=== PATIENT | male | born 1965 | race Caucasian/White ===

== ENCOUNTER 2017-04-05 10:49 | Day surgery (SDC) | payer OTHER ==
[~2017-04-05] VITALS: Ht 167.6 cm; Wt 66.6 kg
[~2017-04-05 10:49] MED LIST: ESOM40CA PO
[2017-04-05] MEDS ORDERED: LIDOCAINE 1%, 2ML ONE (11:22)
[2017-04-05] MEDS ORDERED: LACTATED RINGERS 1,000 ML IV SCH (11:26)
[2017-04-05 11:27] VITALS: BP 130/88
[2017-04-05] MEDS ORDERED: LIDOCAINE 1%, 2ML SQ PRN (11:30)
[2017-04-05] MEDS ORDERED: MIDAZOLAM 1 MG/ML, 2ML ONE (11:43)
[2017-04-05] MEDS ORDERED: FENTANYL PF 100 MCG/2ML ONE ×3 (11:43→13:43)
[2017-04-05] MEDS ORDERED: EPINEPHRINE 1 MG/ML, 1ML ONE (11:49)
[2017-04-05] MEDS ORDERED: NEOSPORIN OINT, 15GM ONE (11:49)
[2017-04-05] MEDS ORDERED: BUPIVACAINE/PF 0.5% ONE (11:49)
[2017-04-05] MEDS ORDERED: CEFAZOLIN 1,000 MG ONE (12:38)
[2017-04-05] MEDS ORDERED: ONDANSETRON 2MG/ML, 2ML ONE (12:38)
[2017-04-05] MEDS ORDERED: PROPOFOL 10 MG/ML, 20ML ONE (12:38)
[2017-04-05] MEDS ORDERED: DEXAMETHASONE 4 MG/ML, 1ML ONE (12:38)
[2017-04-05] MEDS ORDERED: HYDROcodone/APAP 7.5-325MG/15ML UDC ONE (13:43)
[2017-04-05] MEDS ORDERED: KETOROLAC 30 MG/1 ML ONE (13:43)
[2017-04-05] MEDS ORDERED: HYDROmorphone 1 MG/ML, 1ML IV PRN (14:00)
[2017-04-05] MEDS ORDERED: FENTANYL PF 100 MCG/2ML IV PRN (14:00)
[2017-04-05] MEDS ORDERED: HYDROcodone/APAP 7.5-325MG/15ML UDC PO PRN (14:00)
[2017-04-05] MEDS ORDERED: DIAZEPAM 5 MG/ML, 2ML IVPush PRN (14:00)
[2017-04-05] MEDS ORDERED: ALBUTEROL/IPRATROPIUM 2.5MG/0.5MG, 3 ML NPPB PRN (14:00)
[2017-04-05] MEDS ORDERED: PROMETHAZINE 25 MG/ML, 1ML IV PRN (14:00)
[2017-04-05] MEDS ORDERED: LABETALOL 5MG/ML, 20ML IV PRN (14:00)
[2017-04-05] MEDS ORDERED: METOPROLOL 1 MG/ML, 5ML IV PRN (14:00)
[2017-04-05] MEDS ORDERED: ONDANSETRON 2MG/ML, 2ML IVPush PRN (14:00)
[2017-04-05] MEDS ORDERED: MEPERIDINE/PF 25MG/0.5ML IVPush PRN (14:00)
[2017-04-05] MEDS ORDERED: ALBUTEROL SULFATE 2.5 MG/3 ML NPPB PRN (14:00)
[2017-04-05] MEDS ORDERED: OXYcodone 5 MG/5 ML ORAL.SOL UDC PO PRN (14:00)
[2017-04-05] MEDS ORDERED: EPHEDRINE 50 MG/ML, 1ML IVPush PRN (14:00)
[2017-04-05] MEDS ORDERED: KETOROLAC 30 MG/1 ML IV PRN (14:00)
[2017-04-05] MEDS ORDERED: ACETAMINOPHEN 325 MG TABLET PO PRN (14:00)
[2017-04-05] MEDS ORDERED: hydrALAzine 20 MG/ML, 1ML IV PRN (14:00)
== END 2017-04-05 17:15 ==
LOC: OUT 10:49
PROVIDERS: ATTEND Orthopaedic Surgery
DX: S82.51XA Displaced fracture of medial malleolus of right tibia, initial encounter for closed fracture (principal); S92.341A Displaced fracture of fourth metatarsal bone, right foot, initial encounter for closed fracture; S92.331A Displaced fracture of third metatarsal bone, right foot, initial encounter for closed fracture; S92.321A Displaced fracture of second metatarsal bone, right foot, initial encounter for closed fracture; F17.210 Nicotine dependence, cigarettes, uncomplicated; K21.9 Gastro-esophageal reflux disease without esophagitis; F10.10 Alcohol abuse, uncomplicated; F19.90 Other psychoactive substance use, unspecified, uncomplicated; V03.90XA Pedestrian on foot injured in collision with car, pick-up truck or van, unspecified whether traffic or nontraffic accident, initial encounter; Y93.89 Activity, other specified; Y92.89 Other specified places as the place of occurrence of the external cause; Y99.8 Other external cause status
CPT/HCPCS: 27766; 28476; 73600; 76000; C1713; J0171; J0690; J1100; J1885; J2250; J2405; J2704; J3010; J3490; J7120

== ENCOUNTER 2017-06-26 12:25 | Emergency (ER) | payer MEDICAID ==
[~2017-06-26] VITALS: Ht 167.6 cm; Wt 60.0 kg
[2017-06-26 12:27] VITALS: BP 126/82
[2017-06-26] MEDS ORDERED: FLUORESCEIN OPHTHALMIC 1 MG STRIP ONE (12:49)
== END 2017-06-26 13:19 | disposition home or self-care (01) ==
LOC: ED 13:00
DX: H00.034 Abscess of left upper eyelid (principal)
CPT/HCPCS: 99283

== ENCOUNTER 2017-07-19 13:47 | Emergency (ER) | payer MEDICAID ==
[~2017-07-19] VITALS: Ht 167.6 cm; Wt 65.5 kg
[2017-07-19 13:56] VITALS: BP 109/76
[2017-07-19] MEDS ORDERED: LIDOCAINE-MPF 1%, 5ML INFIL ONE (14:30)
== END 2017-07-19 15:50 | disposition home or self-care (01) ==
LOC: ED 15:40
DX: S01.511A Laceration without foreign body of lip, initial encounter (principal); K21.9 Gastro-esophageal reflux disease without esophagitis; I10 Essential (primary) hypertension; Y04.0XXA Assault by unarmed brawl or fight, initial encounter; Y93.89 Activity, other specified; Y99.8 Other external cause status; Y92.488 Other paved roadways as the place of occurrence of the external cause
CPT/HCPCS: 12052

== ENCOUNTER 2017-07-27 11:27 | Emergency (ER) | payer MEDICAID ==
[~2017-07-27] VITALS: Ht 167.6 cm; Wt 67.0 kg
[2017-07-27 11:35] VITALS: BP 120/84
== END 2017-07-27 14:04 | disposition home or self-care (01) ==
LOC: ED 14:03
DX: S01.511D Laceration without foreign body of lip, subsequent encounter (principal); I10 Essential (primary) hypertension; K21.9 Gastro-esophageal reflux disease without esophagitis
CPT/HCPCS: 99281

== ENCOUNTER 2017-09-14 14:56 | Emergency (ER) | payer MEDICAID ==
[~2017-09-14] VITALS: Ht 167.6 cm; Wt 62.0 kg
[~2017-09-14 14:56] MED LIST changes: +MULT-484 PO; +OXYC1TAB7 PO
[2017-09-14 17:07] VITALS: BP 122/70
== END 2017-09-14 17:38 | disposition home or self-care (01) ==
LOC: ED 16:33
DX: R07.89 Other chest pain (principal); K59.00 Constipation, unspecified; Y04.0XXA Assault by unarmed brawl or fight, initial encounter; Y93.89 Activity, other specified; Y99.8 Other external cause status; Y92.410 Unspecified street and highway as the place of occurrence of the external cause
CPT/HCPCS: 71046; 99284

== ENCOUNTER 2019-07-13 06:00 | Observation (INO) | payer MEDICAID ==
[~2019-07-13] VITALS: Ht 167.6 cm; Wt 60.5 kg
--- NOTE | 2019-07-13 06:57 | NUR ---
REPORT RECIEVED FROM CHRIS AVENDAÑO, ASSUMED CARE OF PT, PT DENG SITTING ON [facility] GUNDERSON NOTED.
[2019-07-13 07:20] LABS: ALANINE AMINOTRANSFERASE 26 U/L (12-78); ALBUMIN 3.5 g/dL (3.4-5.0); ANION GAP 6 mmol/L (5-15); CALCIUM 8.5 mg/dL (8.5-10.1); CHLORIDE 109 mmol/L (98-107); CREATININE 0.75 mg/dL (0.7-1.3)
[2019-07-13 07:24] LABS: ALKALINE PHOSPHATASE 105 U/L (45-117); BILIRUBIN,TOTAL 0.7 mg/dL (0.2-1.0); TOTAL PROTEIN 6.5 g/dL (6.4-8.2); TROPONIN I < 0.015 ng/mL (0.000-0.045)
[2019-07-13] MEDS ORDERED: ASPIRIN 81 MG TABLET CHEW ONE (07:40)
[2019-07-13 07:43] LABS: BASOPHILS # (AUTO) 0.04 x10^3/uL (0-0.1); BASOPHILS % (AUTO) 1 % (0-1); EOSINOPHILS # (AUTO) 0.12 x10^3/uL (0-0.4); EOSINOPHILS % (AUTO) 1 % (1-7); LYMPHOCYTES # (AUTO) 1.69 x10^3/uL (1-3.4); LYMPHOCYTES % (AUTO) 20 % (22-44); MD SCAN; MEAN CORPUSCULAR HEMOGLOBIN 31.8 pg (27.5-34.5); MEAN CORPUSCULAR HGB CONC 33.9 g/dL (33.2-36.2); MEAN CORPUSCULAR VOLUME 93.9 fL (81-97); MEAN PLATELET VOLUME 8.4 fL (7.4-10.4); MONOCYTES # (AUTO) 0.63 x10^3/uL (0.2-0.8); MONOCYTES % (AUTO) 8 % (2-9); NEUTROPHILS # (AUTO) 6.01 x10^3/uL (1.8-6.8); NEUTROPHILS % (AUTO) 71 % (42-75); PLATELET COUNT 285 x10^3/uL (130-400); RED BLOOD COUNT 4.71 x10^6/uL (4.38-5.82); RED CELL DISTRIBUTION WIDTH 14.4 % (9.4-14.8)
--- NOTE | 2019-07-13 07:46 | NUR ---
PT MEDICATED PER MAR, PLACED ON ALL MONITORING EQUIP. PT DENIES CP, SOB. STATES HE HAS NO CARDIAC HX
[2019-07-13] MEDS ORDERED: ASPIRIN 81 MG TABLET CHEW PO ONE (08:00)
[2019-07-13] MEDS ORDERED: SODIUM CHLORIDE FLUSH 10ML SYR IVF ONE (08:30)
--- NOTE | 2019-07-13 08:50 | NUR ---
PIV INITIATED, PT UPDATED ON POC. PT TO BE ADMITTED. VSS, NAD NOTED AT THIS TIME
[2019-07-13] MEDS ORDERED: SODIUM CHLORIDE FLUSH 10ML SYR IVF PRN (09:30)
[2019-07-13] MEDS ORDERED: LORazepam 2 MG/ML, 1ML IV PRN ×3 (10:00)
[2019-07-13] MEDS ORDERED: LORazepam 0.5MG TABLET PO PRN (10:00)
[2019-07-13] MEDS ORDERED: ONDANSETRON ODT 4 MG PO PRN (10:00)
[2019-07-13] MEDS ORDERED: MECLIZINE HCL 25 MG TABLET PO PRN (10:00)
[2019-07-13] MEDS ORDERED: LORazepam 1MG TABLET PO PRN ×2 (10:00)
[2019-07-13] MEDS ORDERED: ACETAMINOPHEN 325 MG TABLET PO PRN (10:00)
[2019-07-13] MEDS ORDERED: ONDANSETRON 2MG/ML, 2ML IVPush PRN (10:00)
--- NOTE | 2019-07-13 10:02 | NUR ---
ADMITTING ME IN TO [facility]
[2019-07-13 10:49] VITALS: BP 126/83
[2019-07-13 11:30] VITALS: BP 119/80
[2019-07-13 11:35] VITALS: BP 117/74
[2019-07-13 11:40] VITALS: BP 111/77
[2019-07-13] MEDS: NICOTINE 21 MG/24 HR PATCH.TD24 TD SCH (12:09)
[2019-07-13] MEDS: SODIUM CHLORIDE 0.9% 1,000 ML IV SCH (12:10)
[2019-07-13] MEDS: ENOXAPARIN 40 MG/0.4 ML SQ SCH (12:10)
[2019-07-13 13:30] VITALS: BP 105/59
[2019-07-13 13:53] LABS: AMPHETAMINE SCREEN, URINE Negative (Negative); BARBITURATE SCREEN, URINE Negative (Negative); BENZODIAZEPINE SCREEN, URINE Negative (Negative); CANNABINOID SCREEN, URINE Negative (Negative); COCAINE SCREEN, URINE Negative (Negative); METHADONE SCREEN, URINE Negative (Negative); OPIATE SCREEN, URINE Negative (Negative)
[2019-07-13 16:09] LABS: TROPONIN I < 0.015 ng/mL (0.000-0.045)
[2019-07-13 20:39] VITALS: BP 110/77
[2019-07-14 01:12] VITALS: BP 102/69
[2019-07-14] MEDS: SODIUM CHLORIDE 0.9% 1,000 ML IV SCH (02:23)
[2019-07-14 08:20] VITALS: BP 110/64
[2019-07-14] MEDS ORDERED: PANTOPROZOLE 40MG TABLET PO SCH (09:00)
[2019-07-14] MEDS ORDERED: MULTIVITAMINS/MINERALS TABLET PO SCH (09:00)
[2019-07-14] MEDS ORDERED: LACTOBACILLUS CHEW TABLET PO SCH (09:30)
[2019-07-14] MEDS: NICOTINE 21 MG/24 HR PATCH.TD24 TD SCH (10:00)
[2019-07-14] MEDS: ENOXAPARIN 40 MG/0.4 ML SQ SCH (10:20)
[2019-07-14] MEDS ORDERED: NICO-487 TD (11:21)
[2019-07-14] MEDS ORDERED: MECL-101 PO (11:21)
[2019-07-14] MEDS ORDERED: ACID1TAB7 PO (11:21)
== END 2019-07-14 13:40 | disposition home or self-care (01) ==
LOC: ED 07:01 → EDIP 09:20 → INTOOBSV 09:20 → 5SO 10:46
PROVIDERS: ADMIT Internal Medicine; ATTEND Internal Medicine
DX: H81.09 Meniere's disease, unspecified ear (principal); J44.9 Chronic obstructive pulmonary disease, unspecified; G47.00 Insomnia, unspecified; F10.220 Alcohol dependence with intoxication, uncomplicated; R79.89 Other specified abnormal findings of blood chemistry; R42 Dizziness and giddiness; F17.210 Nicotine dependence, cigarettes, uncomplicated; K21.9 Gastro-esophageal reflux disease without esophagitis; Z79.899 Other long term (current) drug therapy
CPT/HCPCS: 36415; 70450; 80053; 80307; 84484; 85025; 93005; 96360; 96361; 96372; 99285; G0378; J1650; J7030

== ENCOUNTER 2019-07-14 14:02 | Emergency (ER) | payer MEDICAID ==
[~2019-07-14] VITALS: Ht 167.6 cm; Wt 62.0 kg
[~2019-07-14 14:02] MED LIST changes: +ACID1TAB7 PO; +MECL-101 PO; +NICO-487 TD
--- NOTE | 2019-07-14 16:13 | NUR ---
FIRST CONTACT WITH PT. PT C/O DIZZY TROUBLE SLEEPING PAIN IN THE EARS WITH RINGING. RESOLVED AT THE MOMENT. PT'S AOX4. RESPS EVEN AND UNLABORED. BP/SPO2 MONITORS IN PLACE. CALL LIGHT WITHIN REACH.
--- NOTE | 2019-07-14 16:13 | NUR ---
EDMD AT BEDSIDE TO EVALUATE AT THIS TIME.
[2019-07-14] MEDS ORDERED: MECLIZINE CHEWABLE 25 MG TAB ONE (16:19)
[2019-07-14] MEDS ORDERED: DEXAMETHASONE 4 MG/ML, 1ML ONE (16:19)
--- NOTE | 2019-07-14 16:25 | NUR ---
PT MEDICATED PER EMAR. PT TOLERATED WELL.
[2019-07-14] MEDS ORDERED: MECLIZINE CHEWABLE 25 MG TAB PO PRN (16:30)
[2019-07-14] MEDS ORDERED: DEXAMETHASONE 4 MG/ML, 1ML PO ONE (16:30)
--- NOTE | 2019-07-14 16:47 | NUR ---
PT AMB TO BR AND BACK TO ROOM WITH STEADY GAIT.
--- NOTE | 2019-07-14 17:30 | NUR ---
EDMD AT BEDSIDE TO EXPLAIN ALL RESULTS AT THIS TIME.
--- NOTE | 2019-07-14 17:35 | NUR ---
PT STATES"I DON'T FEEL GOOD. I STILL HAVE DZY. I WILL COME BACK IF YOU DC ME." EDMD/MRI CT TECH NOTIFIED. EDMD STATES"HE IS FINE AND HE IS TRYING TO FIND A PLACE TO STAY. PLEASE GIVE HIM SOME FOOD AND DC."
--- NOTE | 2019-07-14 17:40 | NUR ---
APPLE UICE AND SNACKS PROVIDED BEFORE DC.
[2019-07-14 17:46] VITALS: BP 121/73
--- NOTE | 2019-07-14 17:48 | NUR ---
Patient given discharge instructions and they have confirmed that they understand the instructions.
== END 2019-07-14 17:48 | disposition home or self-care (01) ==
LOC: ED 17:26
DX: H93.13 Tinnitus, bilateral (principal); R42 Dizziness and giddiness; I10 Essential (primary) hypertension; K21.9 Gastro-esophageal reflux disease without esophagitis
CPT/HCPCS: 99283; J1100

== ENCOUNTER 2019-07-16 18:28 | Emergency (ER) | payer MEDICAID ==
[~2019-07-16] VITALS: Ht 167.6 cm; Wt 61.5 kg
--- NOTE | 2019-07-16 18:38 | NUR ---
NA X 1
[2019-07-16 19:46] LABS: ALANINE AMINOTRANSFERASE 26 U/L (12-78); ALBUMIN 4.2 g/dL (3.4-5.0); ANION GAP 6 mmol/L (5-15); CALCIUM 8.7 mg/dL (8.5-10.1); CHLORIDE 104 mmol/L (98-107)
[2019-07-16 19:51] LABS: ALKALINE PHOSPHATASE 97 U/L (45-117); BILIRUBIN,TOTAL 0.8 mg/dL (0.2-1.0); TOTAL PROTEIN 7.3 g/dL (6.4-8.2); TROPONIN I < 0.015 ng/mL (0.000-0.045)
[2019-07-16 19:54] LABS: MEAN CORPUSCULAR HEMOGLOBIN 31.9 pg (27.5-34.5); MEAN CORPUSCULAR VOLUME 93.6 fL (81-97); MEAN PLATELET VOLUME 8.3 fL (7.4-10.4); PLATELET COUNT 322 x10^3/uL (130-400); RED BLOOD COUNT 4.69 x10^6/uL (4.38-5.82); RED CELL DISTRIBUTION WIDTH 14.5 % (9.4-14.8)
[2019-07-16 20:44] LABS: MD YES
[2019-07-16 20:46] LABS: <RBC MORPHOLOGY> NORMAL; BAND#(MANUAL) 0.16 x10^3/uL; BANDS%(MANUAL) 1 % (0-7); BASOS#(MANUAL) 0.16 x10^3/uL (0-0.1); BASOS% (MANUAL) 1 % (0-1); EOS#(MANUAL) 0.16 x10^3/uL (0.0-0.4); EOS% (MANUAL) 1 % (1-7); LYMPHS% (MANUAL) 20 % (22-44); MONOS#(MANUAL) 0.93 x10^3/uL (0.3-2.7); MONOS% (MANUAL) 6 % (2-9); SEG#(MANUAL) 11.01 x10^3/uL (1.8-6.8); SEGS% (MANUAL) 71 % (42-75)
[2019-07-16 20:47] LABS: <PLATELET ESTIMATE> ADEQUATE; <PLT MORPHOLOGY> NORMAL PLT MORPH
--- NOTE | 2019-07-16 23:02 | NUR ---
pt to room from lobby
[2019-07-16] MEDS ORDERED: MECLIZINE CHEWABLE 25 MG TAB ONE (23:23)
[2019-07-16] MEDS ORDERED: THIAMINE 100MG TABLET ONE (23:23)
--- NOTE | 2019-07-16 23:26 | NUR ---
MEDICATED PER JUL PT IN [facility] PA AT BS
[2019-07-16] MEDS ORDERED: MECLIZINE CHEWABLE 25 MG TAB PO ONE (23:30)
[2019-07-16] MEDS ORDERED: THIAMINE 100MG TABLET PO ONE (23:30)
[2019-07-16 23:58] LABS: AMPHETAMINE SCREEN, URINE Positive (Negative); BARBITURATE SCREEN, URINE Negative (Negative); BENZODIAZEPINE SCREEN, URINE Negative (Negative); CANNABINOID SCREEN, URINE Negative (Negative); COCAINE SCREEN, URINE Negative (Negative); METHADONE SCREEN, URINE Negative (Negative); OPIATE SCREEN, URINE Negative (Negative)
[2019-07-17 00:47] VITALS: BP 108/69
--- NOTE | 2019-07-17 00:48 | NUR ---
Received report, assumed patient care. Laboratory results and orders complete from PIT orders. Patient still reports dizzyness, but vitals are stable (see vital signs flowsheet.) awaiting reassessment by provider.
== END 2019-07-17 01:43 | disposition home or self-care (01) ==
LOC: ED 07-17 01:10
DX: R42 Dizziness and giddiness (principal); H81.09 Meniere's disease, unspecified ear; F15.10 Other stimulant abuse, uncomplicated; H93.13 Tinnitus, bilateral; F17.210 Nicotine dependence, cigarettes, uncomplicated; K21.9 Gastro-esophageal reflux disease without esophagitis; I10 Essential (primary) hypertension
CPT/HCPCS: 36415; 80053; 80307; 82607; 83735; 84484; 85025; 86592; 93005; 99284

== ENCOUNTER 2019-07-17 16:57 | Emergency (ER) | payer MEDICAID ==
[~2019-07-17] VITALS: Ht 167.6 cm; Wt 61.4 kg
[2019-07-17 18:06] LABS: BASOPHILS # (AUTO) 0.03 x10^3/uL (0-0.1); BASOPHILS % (AUTO) 0 % (0-1); EOSINOPHILS # (AUTO) 0.25 x10^3/uL (0-0.4); EOSINOPHILS % (AUTO) 3 % (1-7); LYMPHOCYTES # (AUTO) 2.19 x10^3/uL (1-3.4); LYMPHOCYTES % (AUTO) 24 % (22-44); MD NO; MEAN CORPUSCULAR HEMOGLOBIN 31.8 pg (27.5-34.5); MEAN CORPUSCULAR HGB CONC 33.8 g/dL (33.2-36.2); MEAN CORPUSCULAR VOLUME 94.1 fL (81-97); MEAN PLATELET VOLUME 8.6 fL (7.4-10.4); MONOCYTES # (AUTO) 0.58 x10^3/uL (0.2-0.8); MONOCYTES % (AUTO) 6 % (2-9); NEUTROPHILS # (AUTO) 6.09 x10^3/uL (1.8-6.8); NEUTROPHILS % (AUTO) 67 % (42-75); PLATELET COUNT 317 x10^3/uL (130-400); RED BLOOD COUNT 4.62 x10^6/uL (4.38-5.82); RED CELL DISTRIBUTION WIDTH 14.5 % (9.4-14.8)
[2019-07-17 18:13] LABS: ALBUMIN 3.5 g/dL (3.4-5.0); ANION GAP 9 mmol/L (5-15); CALCIUM 8.6 mg/dL (8.5-10.1); CHLORIDE 108 mmol/L (98-107); CREATININE 1.02 mg/dL (0.7-1.3)
--- NOTE | 2019-07-17 18:58 | NUR ---
PT AMBULATORY TO RESTROOM WITH STEADY GAIT AND NO STAFF ASSISTANCE.
--- NOTE | 2019-07-17 19:02 | NUR ---
PT HERE WITH C/O RINGING IN EARS, DIZZINESS, "FEELS LIKE I AM GOING TO PASS OUT." PT SEEN HERE FOR THIS FOR MULTIPLE TIMES. PT AAO X 4, NAD, ROOM AIR, CALL LIGHT WITHIN REACH. SIDERAIL X [address]. PT DOES STATE METH USE X 3 DAYS AGO. PT ALSO PREVIOUSLY ADMITTED FOR THIS BEFORE AND PT HAS BEEN GIVEN MULTIPLE INSTRUCTIONS TO CONTACT ENT MD AND FOLLOW UP OUTPATIENT.
[2019-07-17 19:07] VITALS: BP 104/69
[2019-07-17] MEDS ORDERED: THIAMINE 100MG TABLET PO ONE (19:30)
[2019-07-17] MEDS ORDERED: MECLIZINE CHEWABLE 25 MG TAB PO ONE (19:30)
[2019-07-17] MEDS ORDERED: MECLIZINE CHEWABLE 25 MG TAB ONE (19:37)
[2019-07-17] MEDS ORDERED: THIAMINE 100MG TABLET ONE (19:37)
--- NOTE | 2019-07-17 19:41 | NUR ---
PT MEDICATED PER ORDERS.
--- NOTE | 2019-07-17 19:49 | NUR ---
Patient/Caregiver given discharge instructions and they have confirmed that they understand the instructions. Patient ambulatory with steady gait.
== END 2019-07-17 20:05 | disposition home or self-care (01) ==
LOC: ED 19:30
DX: H81.03 Meniere's disease, bilateral (principal); R00.0 Tachycardia, unspecified; F17.210 Nicotine dependence, cigarettes, uncomplicated
CPT/HCPCS: 36415; 80048; 82040; 85025; 93005; 99284

== ENCOUNTER 2019-08-18 10:34 | Emergency (ER) | payer MEDICAID ==
[~2019-08-18] VITALS: Ht 167.6 cm; Wt 59.0 kg
[2019-08-18] MEDS ORDERED: MECLIZINE CHEWABLE 25 MG TAB ONE (11:30)
[2019-08-18] MEDS ORDERED: MECLIZINE CHEWABLE 25 MG TAB PO ONE (11:30)
[2019-08-18 11:44] VITALS: BP 115/75
== END 2019-08-18 11:54 | disposition home or self-care (01) ==
LOC: ED 10:54
DX: R42 Dizziness and giddiness (principal); F15.10 Other stimulant abuse, uncomplicated; I10 Essential (primary) hypertension; K21.9 Gastro-esophageal reflux disease without esophagitis; F17.210 Nicotine dependence, cigarettes, uncomplicated; Z72.9 Problem related to lifestyle, unspecified
CPT/HCPCS: 93005; 99283; 99406

== ENCOUNTER 2019-08-18 19:01 | Emergency (ER) | payer MEDICAID ==
[~2019-08-18] VITALS: Ht 167.6 cm; Wt 61.0 kg
[2019-08-18 19:07] VITALS: BP 112/75
== END 2019-08-18 20:35 | disposition home or self-care (01) ==
LOC: ED 20:08
DX: R05 Cough (principal); J02.9 Acute pharyngitis, unspecified; R09.89 Other specified symptoms and signs involving the circulatory and respiratory systems; F17.210 Nicotine dependence, cigarettes, uncomplicated; K21.9 Gastro-esophageal reflux disease without esophagitis
CPT/HCPCS: 71045; 99283; 99406

== ENCOUNTER 2019-08-27 07:54 | Emergency (ER) | payer MEDICAID ==
[~2019-08-27] VITALS: Ht 167.6 cm; Wt 59.9 kg
[2019-08-27 08:00] VITALS: BP 128/87
== END 2019-08-27 09:24 | disposition home or self-care (01) ==
LOC: ED 08:22
DX: B34.9 Viral infection, unspecified (principal); T69.9XXA Effect of reduced temperature, unspecified, initial encounter; J44.9 Chronic obstructive pulmonary disease, unspecified; K21.9 Gastro-esophageal reflux disease without esophagitis; I10 Essential (primary) hypertension; F17.210 Nicotine dependence, cigarettes, uncomplicated
CPT/HCPCS: 99282

== ENCOUNTER 2020-01-21 06:41 | Emergency (ER) | payer MEDICAID ==
[~2020-01-21] VITALS: Ht 167.6 cm; Wt 67.0 kg
[2020-01-21] MEDS ORDERED: SODIUM CHLORIDE FLUSH 10ML SYR IVF ONE (07:00)
[2020-01-21] MEDS ORDERED: ASPIRIN 81 MG TABLET CHEW PO ONE (07:00)
--- NOTE | 2020-01-21 07:00 | NUR ---
BIB [facility] C/O "HEART FLUTTERS" THAT STARTED AT 0615 WITH ACCOMPANIED FATIGUE. PT IS ASYMPTOMATIC UPON ARRIVAL TO THE ER. NO PMHX, NO MEDS, NKDA. DID REPORT "SMOKING A LITTLE METH" YESTERDAY. DRINKS 1/2 PINT OF ETOH DAILY, SMOKES A PACK A DAY AND OCCASIONALLY USES METH. CAOX4, NO DISTRESS NOTED. ALL MONITORING EQUIPMENT APPLIED, NSR ON THE MONITOR, NO ECTOPY NOTED. NO ST CHANGES PRESENT. ALL VITALS STABLE. PT UPDATED ON POC. REPORT TO PRIMARY RNISELA
[2020-01-21 07:25] LABS: BASOPHILS # (AUTO) 0.07 x10^3/uL (0-0.1); BASOPHILS % (AUTO) 1 % (0-1); EOSINOPHILS # (AUTO) 0.14 x10^3/uL (0-0.4); EOSINOPHILS % (AUTO) 1 % (1-7); LYMPHOCYTES # (AUTO) 1.96 x10^3/uL (1-3.4); LYMPHOCYTES % (AUTO) 19 % (22-44); MD NO; MEAN CORPUSCULAR HEMOGLOBIN 30.4 pg (27.5-34.5); MEAN CORPUSCULAR HGB CONC 33.1 g/dL (33.2-36.2); MEAN CORPUSCULAR VOLUME 91.9 fL (81-97); MEAN PLATELET VOLUME 8.6 fL (7.4-10.4); MONOCYTES # (AUTO) 0.69 x10^3/uL (0.2-0.8); MONOCYTES % (AUTO) 7 % (2-9); NEUTROPHILS % (AUTO) 72 % (42-75); PLATELET COUNT 305 x10^3/uL (130-400); RED BLOOD COUNT 4.96 x10^6/uL (4.38-5.82); RED CELL DISTRIBUTION WIDTH 15.1 % (9.4-14.8)
[2020-01-21 07:29] LABS: ALBUMIN 3.9 g/dL (3.4-5.0); ANION GAP 5 mmol/L (5-15); CALCIUM 8.6 mg/dL (8.5-10.1); CHLORIDE 107 mmol/L (98-107)
[2020-01-21 07:34] LABS: CREATININE 0.84 mg/dL (0.7-1.3); TROPONIN I < 0.015 ng/mL (0.000-0.045)
[2020-01-21 07:48] VITALS: BP 118/78
== END 2020-01-21 08:00 | disposition home or self-care (01) ==
LOC: ED 06:49
DX: R07.89 Other chest pain (principal); R00.2 Palpitations; I44.7 Left bundle-branch block, unspecified; I10 Essential (primary) hypertension; F17.290 Nicotine dependence, other tobacco product, uncomplicated; Z59.0 Homelessness
CPT/HCPCS: 36415; 71045; 80048; 82040; 83880; 84484; 85025; 93005; 99285

== ENCOUNTER 2020-01-23 20:25 | Emergency (ER) | payer MEDICAID ==
[~2020-01-23] VITALS: Ht 167.6 cm; Wt 67.9 kg
[2020-01-23] MEDS ORDERED: FLUORESCEIN OPHTHALMIC 1 MG STRIP ONE (21:05)
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
[2020-01-23 21:11] VITALS: BP 119/80
--- NOTE | 2020-01-23 21:11 | NUR ---
EKG AT BS
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
--- NOTE | 2020-01-23 21:48 | NUR ---
PT REPORT TO JAROCHO LYNCH. PT CARE TRANSFERRED.
--- NOTE | 2020-01-23 21:55 | NUR ---
Report received from JAROCHO Salcido. This RN to assume care.
== END 2020-01-23 22:28 | disposition left against medical advice (07) ==
LOC: ED 21:28
DX: F15.151 Other stimulant abuse with stimulant-induced psychotic disorder with hallucinations (principal); R00.0 Tachycardia, unspecified; K21.9 Gastro-esophageal reflux disease without esophagitis; Y90.9 Presence of alcohol in blood, level not specified
CPT/HCPCS: 93005; 99283

== ENCOUNTER 2020-01-25 14:10 | Emergency (ER) | payer MEDICAID ==
[~2020-01-25] VITALS: Ht 160 cm; Wt 60.0 kg
--- NOTE | 2020-01-25 14:44 | NUR ---
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
--- NOTE | 2020-01-25 14:50 | NUR ---
BIB [facility]-pt c/o intermittent palpitations starting yesterday. Pt reports seen here for same yesterday and palpitations persist. Pt speaking in full sentences, resp even and unlabored, NADN, denies pain. Pt placed in gown, positioned for comfort in bed. Continuous heart, oxygen and BP Monitors applied, all safety measures observed.
--- NOTE | 2020-01-25 15:21 | NUR ---
Pt reports "I feel my heart fluttering." Pt resting in bed watching TV. No changes on continuous laboratory monitor, VSS. POC discussed with pt. Pt denies other needs.
[2020-01-25 15:23] VITALS: BP 124/72
--- NOTE | 2020-01-25 15:49 | NUR ---
Dr. Martin at bedside to evaluate pt. Pt requests that PIV be removed because he wants to leave. Pt reports "I'm not getting any care here!" Pt advised that ERP is here to evaluate pt. Pt maintains that he would like to leave. Pt removed all monitors. PIV dc'd with tip intact, gauze and tape dressing applied. Pt A&Ox4. Pt able to dress self fully and ambulate out of unit with steady gait.
== END 2020-01-25 15:52 | disposition left against medical advice (07) ==
LOC: ED 15:40
DX: R00.2 Palpitations (principal); I44.7 Left bundle-branch block, unspecified; Z53.21 Procedure and treatment not carried out due to patient leaving prior to being seen by health care provider
CPT/HCPCS: 93005

== ENCOUNTER 2020-02-03 01:09 | Observation (INO) | payer MEDICAID ==
[~2020-02-03] VITALS: Ht 167.6 cm; Wt 60.1 kg
--- NOTE | 2020-02-03 01:23 | NUR ---
PT BIB EMS. PT STATES SOB AND CHEST DISCOMFORT THAT HAPPENS THROUGHOUT THE DAY BUT GOT WORSE TONIGHT WHEN HE WAS TRYING TO SLEEP. PT GIVEN 324 MG ORAL ASPRIN, AND IV PLACED BY EMS. PT WAS HERE THE PAST COUPLE DAYS FOR SAME ISSUE. PT PLACED ON ALL MONITORS, PT RESTING COMFORTABLY IN GURNEY, SKIN IS PINK, DRY AND INTACT. AWAITING ORDERS FROM ERP
[2020-02-03] MEDS ORDERED: ASPIRIN 81 MG TABLET CHEW PO ONE (01:30)
[2020-02-03 02:21] LABS: BASOPHILS # (AUTO) 0.04 x10^3/uL (0-0.1); BASOPHILS % (AUTO) 1 % (0-1); EOSINOPHILS # (AUTO) 0.32 x10^3/uL (0-0.4); EOSINOPHILS % (AUTO) 5 % (1-7); LYMPHOCYTES # (AUTO) 2.07 x10^3/uL (1-3.4); LYMPHOCYTES % (AUTO) 30 % (22-44); MD NO; MEAN CORPUSCULAR HEMOGLOBIN 30.6 pg (27.5-34.5); MEAN CORPUSCULAR HGB CONC 32.9 g/dL (33.2-36.2); MEAN PLATELET VOLUME 7.8 fL (7.4-10.4); MONOCYTES # (AUTO) 0.59 x10^3/uL (0.2-0.8); MONOCYTES % (AUTO) 8 % (2-9); NEUTROPHILS # (AUTO) 3.99 x10^3/uL (1.8-6.8); NEUTROPHILS % (AUTO) 57 % (42-75); PLATELET COUNT 316 x10^3/uL (130-400); RED BLOOD COUNT 4.28 x10^6/uL (4.38-5.82); RED CELL DISTRIBUTION WIDTH 15.4 % (9.4-14.8)
[2020-02-03 02:26] LABS: ALANINE AMINOTRANSFERASE 21 U/L (12-78); ALBUMIN 3.1 g/dL (3.4-5.0); ANION GAP 7 mmol/L (5-15); CALCIUM 8.3 mg/dL (8.5-10.1); CHLORIDE 110 mmol/L (98-107)
[2020-02-03 02:30] LABS: ALKALINE PHOSPHATASE 88 U/L (45-117); BILIRUBIN,TOTAL 0.4 mg/dL (0.2-1.0); TOTAL PROTEIN 5.9 g/dL (6.4-8.2); TROPONIN I < 0.015 ng/mL (0.000-0.045)
--- NOTE | 2020-02-03 02:32 | NUR ---
PT SLEEPING IN BED, NO S/S OF DISTRESS, SAFETY MEASURES IN PLACE
[2020-02-03] MEDS ORDERED: SODIUM CHLORIDE 0.9% 1,000 ML IV SCH (03:24)
[2020-02-03] MEDS ORDERED: NITROGLYCERIN SINGLE TAB 0.4 MG SL PRN (03:30)
[2020-02-03] MEDS ORDERED: NICOTINE 14MG/24 HR PATCH.TD24 TD ONE (03:30)
[2020-02-03] MEDS ORDERED: morphine SULFATE 10 MG/ML, 1ML IV PRN ×2 (03:30→08:30)
[2020-02-03 03:52] LABS: CHOLESTEROL, TOTAL 125 mg/dL (140-239); TRIGLYCERIDES 91 mg/dL (50-200); VLDL CHOLESTEROL 18 mg/dL (0-25)
[2020-02-03 03:56] LABS: CHOL/HDL RATIO 2.6; HDL CHOL % 39 % (26-37); HDL CHOLESTEROL (DIRECT) 49 mg/dL (40-60); LDL CHOLESTEROL,CALCULATED 58 mg/dL (54-169); LDL/HDL RATIO 1.2 (0.5-3.0); TROPONIN I < 0.015 ng/mL (0.000-0.045)
[2020-02-03] MEDS ORDERED: POTASSIUM CHLORIDE 20 MEQ TAB.ER.PRT PO ONE (04:00)
[2020-02-03] MEDS ORDERED: POTASSIUM CHLORIDE 20 MEQ TAB.ER.PRT ONE (04:26)
--- NOTE | 2020-02-03 04:50 | NUR ---
REPORT GIVEN TO JAROCHO MARTINEZ.
[2020-02-03 05:06] VITALS: BP 113/69
[2020-02-03 05:23] LABS: AMPHETAMINE SCREEN, URINE Positive (Negative); BARBITURATE SCREEN, URINE Negative (Negative); BENZODIAZEPINE SCREEN, URINE Negative (Negative); CANNABINOID SCREEN, URINE Negative (Negative); COCAINE SCREEN, URINE Negative (Negative); METHADONE SCREEN, URINE Negative (Negative); OPIATE SCREEN, URINE Negative (Negative)
[2020-02-03 06:19] LABS: TROPONIN I < 0.015 ng/mL (0.000-0.045)
[2020-02-03 07:25] VITALS: BP 112/67
[2020-02-03] MEDS ORDERED: SODIUM CHLORIDE FLUSH 10ML SYR IVF SCH (09:00)
[2020-02-03] MEDS ORDERED: ACET325C6 PEG (10:58)
[2020-02-04] MEDS ORDERED: ASPIRIN 325 MG TABLET EC PO SCH (06:00)
== END 2020-02-03 12:10 | disposition home or self-care (01) ==
LOC: ED 02:55 → EDIP 03:33 → 5SO 05:00 → DCLOUNGE 12:06
PROVIDERS: ADMIT Family Medicine; ATTEND Internal Medicine
DX: R07.89 Other chest pain (principal); E87.6 Hypokalemia; I10 Essential (primary) hypertension; R06.00 Dyspnea, unspecified; K21.9 Gastro-esophageal reflux disease without esophagitis; R94.31 Abnormal electrocardiogram [ECG] [EKG]; H81.09 Meniere's disease, unspecified ear; F10.10 Alcohol abuse, uncomplicated; F15.10 Other stimulant abuse, uncomplicated; F17.210 Nicotine dependence, cigarettes, uncomplicated; Z79.899 Other long term (current) drug therapy
CPT/HCPCS: 36415; 71045; 80053; 80061; 80307; 83735; 84484; 85025; 93005; 93306; 96360; 96361; 99285; G0378; J7030

== ENCOUNTER 2020-02-07 19:20 | Emergency (ER) | payer MEDICAID ==
[~2020-02-07] VITALS: Ht 167.6 cm; Wt 56.7 kg
[~2020-02-07 19:20] MED LIST changes: +ACET325C6 PEG
[2020-02-07] MEDS ORDERED: ACETAMINOPHEN 325 MG TABLET PO ONE (20:00)
[2020-02-07 20:18] LABS: BASOPHILS # (AUTO) 0.01 x10^3/uL (0-0.1); BASOPHILS % (AUTO) 0 % (0-1); EOSINOPHILS % (AUTO) 1 % (1-7); LYMPHOCYTES # (AUTO) 1.96 x10^3/uL (1-3.4); LYMPHOCYTES % (AUTO) 14 % (22-44); MD NO; MEAN CORPUSCULAR HEMOGLOBIN 30.4 pg (27.5-34.5); MEAN CORPUSCULAR HGB CONC 32.7 g/dL (33.2-36.2); MEAN CORPUSCULAR VOLUME 93.2 fL (81-97); MEAN PLATELET VOLUME 8.1 fL (7.4-10.4); MONOCYTES # (AUTO) 0.79 x10^3/uL (0.2-0.8); MONOCYTES % (AUTO) 6 % (2-9); NEUTROPHILS # (AUTO) 10.81 x10^3/uL (1.8-6.8); NEUTROPHILS % (AUTO) 79 % (42-75); PLATELET COUNT 329 x10^3/uL (130-400); RED BLOOD COUNT 4.76 x10^6/uL (4.38-5.82); RED CELL DISTRIBUTION WIDTH 15.3 % (9.4-14.8)
[2020-02-07 20:21] LABS: ALANINE AMINOTRANSFERASE 20 U/L (12-78); ALBUMIN 3.9 g/dL (3.4-5.0); ANION GAP 6 mmol/L (5-15); CALCIUM 8.5 mg/dL (8.5-10.1); CHLORIDE 110 mmol/L (98-107); CREATININE 0.88 mg/dL (0.7-1.3)
[2020-02-07 20:32] LABS: ALKALINE PHOSPHATASE 98 U/L (45-117); BILIRUBIN,TOTAL 0.9 mg/dL (0.2-1.0); TOTAL PROTEIN 6.8 g/dL (6.4-8.2); TROPONIN I < 0.015 ng/mL (0.000-0.045)
[2020-02-07 21:24] VITALS: BP 120/71
== END 2020-02-07 21:40 | disposition home or self-care (01) ==
LOC: ED 19:47
DX: F10.10 Alcohol abuse, uncomplicated (principal); F15.10 Other stimulant abuse, uncomplicated; F17.200 Nicotine dependence, unspecified, uncomplicated; R06.00 Dyspnea, unspecified; R07.89 Other chest pain; I44.7 Left bundle-branch block, unspecified; I10 Essential (primary) hypertension; K21.9 Gastro-esophageal reflux disease without esophagitis; Z72.9 Problem related to lifestyle, unspecified; Y90.0 Blood alcohol level of less than 20 mg/100 ml
CPT/HCPCS: 36415; 71046; 80053; 83690; 84484; 85025; 93005; 99285

== ENCOUNTER 2020-02-09 15:10 | Emergency (ER) | payer MEDICAID ==
[~2020-02-09] VITALS: Ht 167.6 cm; Wt 59.3 kg
--- NOTE | 2020-02-09 15:14 | NUR ---
callx1, no answer
[2020-02-09] MEDS ORDERED: MECLIZINE CHEWABLE 25 MG TAB PO ONE (16:00)
--- NOTE | 2020-02-09 16:00 | NUR ---
to room gait steady. as
[2020-02-09 16:11] LABS: BASOPHILS # (AUTO) 0.05 x10^3/uL (0-0.1); BASOPHILS % (AUTO) 1 % (0-1); EOSINOPHILS # (AUTO) 0.33 x10^3/uL (0-0.4); EOSINOPHILS % (AUTO) 5 % (1-7); LYMPHOCYTES # (AUTO) 1.51 x10^3/uL (1-3.4); LYMPHOCYTES % (AUTO) 21 % (22-44); MEAN CORPUSCULAR HEMOGLOBIN 30.7 pg (27.5-34.5); MEAN CORPUSCULAR HGB CONC 32.9 g/dL (33.2-36.2); MEAN CORPUSCULAR VOLUME 93.3 fL (81-97); MEAN PLATELET VOLUME 8.1 fL (7.4-10.4); MONOCYTES # (AUTO) 0.42 x10^3/uL (0.2-0.8); MONOCYTES % (AUTO) 6 % (2-9); NEUTROPHILS # (AUTO) 4.84 x10^3/uL (1.8-6.8); NEUTROPHILS % (AUTO) 68 % (42-75); PLATELET COUNT 288 x10^3/uL (130-400); RED BLOOD COUNT 4.43 x10^6/uL (4.38-5.82); RED CELL DISTRIBUTION WIDTH 15.5 % (9.4-14.8)
[2020-02-09 16:12] LABS: MD NO
[2020-02-09 16:17] LABS: ALBUMIN 3.3 g/dL (3.4-5.0); ANION GAP 7 mmol/L (5-15); CALCIUM 8.7 mg/dL (8.5-10.1); CHLORIDE 109 mmol/L (98-107); CREATININE 0.76 mg/dL (0.7-1.3)
[2020-02-09] MEDS ORDERED: MECLIZINE CHEWABLE 25 MG TAB ONE (16:19)
[2020-02-09 16:20] LABS: TROPONIN I < 0.015 ng/mL (0.000-0.045)
--- NOTE | 2020-02-09 17:01 | NUR ---
pt nsr on monitor. flat affect. c/o fatigue sob MELGAR x days. meth 3 days ago. drinks 1/2 pint vodka/day. asked for ua given urinal. labs cxr pending. call [facility] in reach. as
[2020-02-09 17:02] VITALS: BP 111/73
== END 2020-02-09 18:05 | disposition home or self-care (01) ==
LOC: ED 16:19
DX: R42 Dizziness and giddiness (principal); R51 Headache; R06.00 Dyspnea, unspecified; I44.7 Left bundle-branch block, unspecified; R07.89 Other chest pain; I10 Essential (primary) hypertension; K21.9 Gastro-esophageal reflux disease without esophagitis
CPT/HCPCS: 36415; 70450; 71045; 80048; 82040; 84484; 85025; 93005; 99285